=== PATIENT | female | born 1970 ===

== ENCOUNTER 2022-01-15 12:15 | Inpatient (IN) | payer OTHER ==
[~2022-01-15] VITALS: Ht 167.6 cm; Wt 88.5 kg
[2022-01-15] MEDS ORDERED: ZYRTEC10 MG PO (14:08)
[2022-01-15] MEDS ORDERED: COZAAR50 MG PO (14:10)
[2022-01-15] MEDS ORDERED: NASAL MIST126 ML (14:11)
[2022-01-15] MEDS ORDERED: SYMBI IH (14:11)
[2022-01-18] MEDS ORDERED: PANTOPRAZOLE SO40 MG (13:06)
[2022-01-18] MEDS ORDERED: INTESTINEX680 M1 (13:07)
[2022-01-18] MEDS ORDERED: MONTELUKAST SOD10 MG (13:07)
[2022-01-18] MEDS ORDERED: SYMBICORT 80/10.2 GM (13:08)
== END 2022-01-20 10:06 | disposition home or self-care (01) | DRG 743 ==
LOC: O/R 01-18 07:22 → SURH 01-18 11:30 → EDBD 01-18 12:15 → OB/GYN 01-18 15:55
PROVIDERS: ADMIT Obstetrics & Gynecology Gynecologic Oncology; ATTEND Obstetrics & Gynecology Gynecologic Oncology
PROC: 07BC0ZZ Excision of Pelvis Lymphatic, Open Approach (ICD-10-PCS; 2022-01-18)
PROC: 0UT70ZZ Resection of Bilateral Fallopian Tubes, Open Approach (ICD-10-PCS; 2022-01-18)
PROC: 0UT20ZZ Resection of Bilateral Ovaries, Open Approach (ICD-10-PCS; 2022-01-18)
PROC: 0DNW0ZZ Release Peritoneum, Open Approach (ICD-10-PCS; 2022-01-18)
PROC: 0WBH0ZZ Excision of Retroperitoneum, Open Approach (ICD-10-PCS; 2022-01-18)
PROC: 0DBU0ZZ Excision of Omentum, Open Approach (ICD-10-PCS; 2022-01-18)
PROC: 3E1M38Z Irrigation of Peritoneal Cavity using Irrigating Substance, Percutaneous Approach (ICD-10-PCS; 2022-01-18)
PROC: 0UT90ZZ Resection of Uterus, Open Approach (ICD-10-PCS; principal; 2022-01-18 11:30)
DX: D25.1 Intramural leiomyoma of uterus (principal); D25.2 Subserosal leiomyoma of uterus; D27.1 Benign neoplasm of left ovary; Z20.822 Contact with and (suspected) exposure to COVID-19; N72 Inflammatory disease of cervix uteri; N83.11 Corpus luteum cyst of right ovary